=== PATIENT | male | born 1965 | race Caucasian/White ===

== ENCOUNTER 2023-11-23 00:17 | Emergency (ER) | payer OTHER, BC, SELFPAY ==
[2023-11-23 00:22] VITALS: BP 145/89; PULSE 82; RESP 20; TEMP 36.4; O2SAT 100
[2023-11-23] MEDS: methylPREDNISolone SOD SUCC 125 MG VIAL IV PUSH (01:03)
[2023-11-23 01:06] VITALS: BP 133/91; PULSE 74; RESP 15; O2SAT 96
--- NOTE | 2023-11-23 01:14 | ED.GENADULT ---
HPI - General Adult General Chief complaint: Unspecified Stated complaint: sob, can't swallow Time Seen by Provider: 11/23/23 00:43 Related Data Allergies Allergy/AdvReac Type Severity Reaction Status Date / Time Penicillins Allergy Unknown Verified 08/25/14 07:00 Wasp Allergy Unknown Uncoded 08/25/14 07:00 Course Vital Signs Vital signs: Vital Signs Temperature 36.4 C L 11/23/23 00:22 Pulse Rate 82 11/23/23 00:22 Respiratory Rate 20 11/23/23 00:22 Blood Pressure 145/89 H 11/23/23 00:22 Pulse Oximetry 100 11/23/23 00:22 Oxygen Delivery Room Air 11/23/23 00:22 Temperature 36.4 C L 11/23/23 00:22 Pulse Rate 74 11/23/23 01:06 Respiratory Rate 15 11/23/23 01:06 Blood Pressure 133/91 H 11/23/23 01:06 Pulse Oximetry 96 11/23/23 01:06 Oxygen Delivery Room Air 11/23/23 00:22 Medical Decision Making [facility] Narrative Medical decision making narrative: Differential diagnosis includes a localized angioedema quincke's edema Patient was given IV steroids Benadryl and Pepcid has been observed in the emergency department and has had improvement in his symptoms and is actually feeling much better the patient will be discharged home on a pulse dose of steroids Vital Signs Vital Signs: Vital Signs Temperature 36.4 C L 11/23/23 00:22 Pulse Rate 82 11/23/23 00:22 Respiratory Rate 20 11/23/23 00:22 Blood Pressure 145/89 H 11/23/23 00:22 Pulse Oximetry 100 11/23/23 00:22 Oxygen Delivery Room Air 11/23/23 00:22 Temperature 36.4 C L 11/23/23 00:22 Pulse Rate 74 11/23/23 01:06 Respiratory Rate 15 11/23/23 01:06 Blood Pressure 133/91 H 11/23/23 01:06 Pulse Oximetry 96 11/23/23 01:06 Oxygen Delivery Room Air 11/23/23 00:22 Discharge Plan Discharge Clinical Impression: Quincke edema Qualifiers: Encounter type: initial encounter Qualified Code(s): T78.3XXA - Angioneurotic edema, initial encounter Patient Disposition: Home, Self-Care Condition: Stable Instructions: Antibiotic Form, Angioedema (ED) Additional Instructions: You had isolated swelling of your uvula. Prescriptions: New prednisone 20 mg tablet 40 mg PO DAILY 5 Days Qty: 10 0RF Follow-up/Referrals: Otoniel,Darrell Serrato MD [Primary Care Provider] - Time of Disposition: 03:32
[2023-11-23] MEDS: FAMOTIDINE 20 MG/2 ML VIAL IV PUSH (01:18)
[2023-11-23] MEDS: diphenhydrAMINE HCl INJ 50 MG/ML VIAL 25 MG IV PUSH (01:18)
== END 2023-11-23 03:38 | disposition home or self-care (01) ==
PROVIDERS: Emergency Provider Emergency Medicine; PCP Family Medicine
DX: T78.3XXA Angioneurotic edema, initial encounter (principal)
CPT/HCPCS: 96374; 96375; 99284; J1200; J2930

== ENCOUNTER 2024-09-27 15:31 | Outpatient (CLI) | payer BC, SELFPAY ==
--- NOTE | ~2024-09-27 | MR_ITS ---
EXAMINATION: MR lumbar spine wo con DATE: 09/27/2024 16:19 INDICATION: Lumbago. TECHNIQUE: Magnetic resonance imaging (MRI) of the lumbar spine was performed without intravenous con trast. Sequences included sagittal T2-weighted FSE, sagittal T2-weighted FS FSE, sagittal T1-weighted FSE, and axial T2-weighted FSE. COMPARISON: None FINDINGS: There is 6 degrees dextrocurvature of thoracolumbar spine. There is hypolordosis of lumbar spine. Vertebral body heights are normal. There is mildly decreased disc height at L3-L4 and L4-L5. T he distal spinal cord signal intensity is normal. The conus medullaris is at L1-L2. The following dis c levels are specifically discussed: L1-L2: The disc does not extend beyond the endplate margin. There is mild left facet joint osteoarthr itis. There is no neural foraminal stenosis. There is no central canal stenosis. L2-L3: The disc does not extend beyond the endplate margin. There is mild bilateral facet joint osteo arthritis. There is no neural foraminal stenosis. There is no central canal stenosis. L3-L4: There is a central protrusion. There is mild bilateral facet joint osteoarthritis. There is no neural foraminal stenosis. There is mild central canal stenosis. L4-L5: The disc is bulging and has an annular fissure. There is mild bilateral facet joint osteoarthr itis. There is mild bilateral neural foraminal stenosis. There is mild central canal stenosis. L5-S1: The disc is bulging and has an annular fissure. There is mild right and moderate left facet barron int osteoarthritis. There is mild left neural foraminal stenosis. There is no central canal stenosis. IMPRESSION: 1. Mild lumbar spondylosis. Reviewed, dictated and finalized at location A. TEACHER IMPRESSION: 1. Mild lumbar spondylosis.
== END 2024-09-27 15:32 | disposition home or self-care (01) ==
PROVIDERS: PCP Family Medicine; Visit Provider Nurse Practitioner Family
DX: M47.816 Spondylosis without myelopathy or radiculopathy, lumbar region (principal)
CPT/HCPCS: 72148